=== PATIENT | male | born 1995 | race Caucasian/White ===

== ENCOUNTER 2018-08-31 18:31 | Emergency (ER) | payer BC, OTHER ==
[2018-08-31] MEDS: ACETAMINOPHEN 325 MG TAB PO (19:53)
== END 2018-08-31 21:46 | disposition home or self-care (01) ==
LOC: FTE 18:31
DX: S09.90XA Unspecified injury of head, initial encounter (principal); R51 Headache; W22.09XA Striking against other stationary object, initial encounter; Y92.9 Unspecified place or not applicable
CPT/HCPCS: 70450; 99284-25